=== PATIENT | male | born 1965 | race Caucasian/White ===

== ENCOUNTER → 2023-08-30 09:35 | Outpatient (REF) | payer OTHER, SELFPAY | LOC: MRI 3T 09:35 | PROVIDERS: ATTENDING PHYSICIAN Nurse Practitioner Acute Care; FAMILY PHYSICIAN Internal Medicine | DX: D49.7 Neoplasm of unspecified behavior of endocrine glands and other parts of nervous system (principal) | CPT/HCPCS: 72158; A9575 ==

== ENCOUNTER → 2024-09-24 08:20 | Outpatient (REF) | payer BC, SELFPAY | LOC: MRI 3T 08:20 | PROVIDERS: ATTENDING PHYSICIAN Neurological Surgery; FAMILY PHYSICIAN Psychiatry & Neurology Neurology | DX: D49.7 Neoplasm of unspecified behavior of endocrine glands and other parts of nervous system (principal); M54.50 Low back pain, unspecified; G89.29 Other chronic pain | CPT/HCPCS: 72158; A9575 ==